=== PATIENT | male | born 1965 | race Caucasian/White ===

== ENCOUNTER 2018-09-07 05:54 | Inpatient (IN) | payer OTHER ==
[2018-08-27 17:01] VITALS: BMI 40.3
[2018-09-07] MEDS ORDERED: BUPIVACAINE HCL/PF 2.5 MG/ML - 30 ML VIAL IJ ONE (07:35)
--- NOTE | 2018-09-07 07:46 | HP ---
Admitting History and Physical - Admission Chief Complaint: Morbid obesity History Source: Patient Limitations to Obtaining History: No Limitations - Past Medical History Cardiovascular: Yes: HTN - Smoking History Smoking history: Former smoker Have you smoked in the past 12 months: No Aproximately how many cigarettes per day: 26 If you are a former smoker, when did you quit?: 4 yrs ago - Alcohol/Substance Use Hx Alcohol Use: No (pt vapes) Home Medications - Allergies Allergies/Adverse Reactions: Allergies Allergy/AdvReac Type Severity Reaction Status Date / Time No Known Allergies Allergy Verified 01/10/13 13:11 - Home Medications Home Medications: Ambulatory Orders Lisinopril 20 mg PO HS 09/04/18 Metoprolol Succinate 25 mg PO HS 09/04/18 Family Disease History - Family Disease History Family History: Denies Review of Systems - Review of Systems Constitutional: denies: Chills, Fever HENT: reports: No Symptoms Neck: reports: No Symptoms Cardiovascular: reports: No Symptoms Respiratory: reports: No Symptoms Gastrointestinal: reports: No Symptoms. denies: Abdominal Pain Neurological: reports: No Symptoms Pain Intensity: 0 Physical Examination Vital Signs: Vital Signs Temperature Pulse Rate 67 09/07/18 07:33 Respiratory Rate 16 09/07/18 07:33 Blood Pressure 165/115 H 09/07/18 07:33 O2 Sat by Pulse Oximetry (%) Constitutional: Yes: Calm Neck: Yes: WNL Cardiovascular: Yes: WNL Respiratory: Yes: Regular Gastrointestinal: Yes: Soft, Abdomen, Obese. No: Tenderness Neurological: Yes: Alert, Oriented Problem List - Problems (1) Morbid obesity due to excess calories Code(s): E66.01 - MORBID (SEVERE) OBESITY DUE TO EXCESS CALORIES (2) BMI 40.0-44.9, adult Code(s): Z68.41 - BODY MASS INDEX (BMI) 40.0-44.9, ADULT (3) Hypertension Code(s): I10 - ESSENTIAL (PRIMARY) HYPERTENSION Qualifiers: Hypertension type: unspecified Qualified Code(s): I10 - Essential (primary ) hypertension Assessment/Plan Laparoscopic possible open vertical sleeve gastrectomy possible liver biopsy possible upper endoscopy Risks and benefits explained again Understands Patient and agree
[2018-09-07] MEDS ORDERED: fentaNYL CITRATE 250 MCG/5 ML VIAL ONE (08:02)
[2018-09-07] MEDS ORDERED: MIDAZOLAM HCL 2 MG/2 ML SINGLE DOSE VIAL ONE (08:02)
[2018-09-07] MEDS ORDERED: BUPIVACAINE HCL/PF (5 MG/ML) 30 ML VIAL IJ ONE (08:02)
[2018-09-07] MEDS ORDERED: SUCCINYLCHOLINE CHLORIDE 200 MG/10 ML VIAL ONE (08:18)
[2018-09-07] MEDS ORDERED: PROPOFOL 20 ML ONE ×2 (08:18)
[2018-09-07] MEDS ORDERED: ROCURONIUM BROMIDE 50 MG/5 ML VIAL ONE (08:18)
[2018-09-07] MEDS ORDERED: ONDANSETRON 4 MG/2 ML VIAL ONE (08:19)
[2018-09-07] MEDS ORDERED: DEXAMETHASONE SOD PHOSPHATE 4 MG/1 ML VIAL ONE (08:19)
[2018-09-07] MEDS ORDERED: ceFAZolin SODIUM 1 GM VIAL ONE (08:19)
[2018-09-07] MEDS ORDERED: ePHEDrine SULFATE 50 MG/1 ML AMPULE ONE (09:26)
[2018-09-07] MEDS ORDERED: GLYCOPYRROLATE 0.2 MG/1 ML VIAL ONE (09:29)
[2018-09-07] MEDS ORDERED: NEOSTIGMINE METHYLSULFATE 0.5 MG/ML - 10 ML MDV ONE (09:29)
[2018-09-07] MEDS ORDERED: HYDROmorphone HCL CARPU-JECT 1 MG/1 ML DISP.SYRIN IVPB PRN (09:47)
--- NOTE | 2018-09-07 09:52 | OP ---
Operative Note - Note: Operative Date: 09/07/18 Pre-Operative Diagnosis: Morbid obesity. BMI 40.4. Hypertension Operation: Diagnostic laparoscopy. Laparoscopic vertical sleeve gastrectomy Post-Operative Diagnosis: Same as Pre-op Surgeon: Gibran Solorio Face Painter: Jono Shi Anesthesia: General Specimens Removed: Greater curvature of stomach Estimated Blood Loss (mls): 30 Drains & Tubes with Location: 36 fr Bougie Operative Report Dictated: Yes
[2018-09-07] MEDS ORDERED: ACETAMINOPHEN 1000 MG/100 ML VIAL (NON FORMULARY) IVPB SCH (10:00)
[2018-09-07] MEDS ORDERED: SODIUM CHLORIDE 1,000 ML IV SCH (10:00)
[2018-09-07] MEDS ORDERED: METOCLOPRAMIDE HCL INJECTION 10 MG/2 ML VIAL IVPUSH SCH (10:00)
[2018-09-07] MEDS ORDERED: LABETALOL HCL 5 MG/1 ML (100MG/20 ML VIAL) ONE (10:16)
[2018-09-07 10:32] LABS: HEMATOCRIT 41.9 % (35.4-49); HEMOGLOBIN 14.2 GM/dl (11.7-16.9); MCH 29.5 pg (25.7-33.7); MCHC 33.9 g/dl (32.0-35.9); MEAN CELL VOLUME 87.1 fl (80-96); MEAN PLT VOLUME 7.6 fl (7.5-11.1); PLATELET COUNT 309 K/MM3 (134-434); RBC 4.81 M/mm3 (4.00-5.60); RDW 12.2 % (11.9-15.9); WHITE BLOOD COUNT 9.6 K/mm3 (4.0-10.8)
[2018-09-07] MEDS ORDERED: FAMOTIDINE 20 MG PREMIXED IVPB IVPB ONE (10:40)
[2018-09-07 11:00] LABS: ALBUMIN 3.8 g/dl (3.4-5.0); ALK PHOS 76 U/L (45-117); ANION GAP 12 MMOL/L (8-16); BILIRUBIN,TOTAL 0.7 mg/dl (0.2-1); BLOOD UREA NITROGEN 14 mg/dl (7-18); CALCIUM 8.4 mg/dl (8.5-10); CHLORIDE 102 mmol/L (98-107); CO2 24 mmol/L (21-32); GLUCOSE,RANDOM 137 mg/dl (74-106); SGOT/AST 92 U/L (15-37); SGPT/ALT 144 U/L (13-61); SODIUM 138 mmol/L (136-145)
[2018-09-07] MEDS: LISINOPRIL 20 MG TABLET (FP) PO SCH (11:05)
[2018-09-07] MEDS ORDERED: hydrALAZINE HCL 20 MG/ML VIAL ONE (12:14)
[2018-09-07] MEDS ORDERED: LABETALOL HCL 5 MG/1 ML (100MG/20 ML VIAL) IVPUSH ONE (13:04)
[2018-09-07] MEDS ORDERED: hydrALAZINE HCL 20 MG/ML VIAL IVPUSH ONE (13:05)
--- NOTE | 2018-09-07 13:29 | SPEC ---
DATE OF OPERATION: 09/07/2018 SURGEON: Lizzie Solorio MD AGRICULTURAL PILOT: Jono Shi MD PREOPERATIVE DIAGNOSES: 1. Morbid obesity. 2. Hypertension. 3. Body mass index 40.4. POSTOPERATIVE DIAGNOSES: 1. Morbid obesity. 2. Hypertension. 3. Body mass index 40.4. PROCEDURES: 1. Diagnostic laparoscopy. 2. Laparoscopic vertical sleeve gastrectomy. SPECIMEN: Greater curvature of the stomach. ESTIMATED BLOOD LOSS: 30 mL. DRAIN: None. ANESTHESIA: GET. BOUGIE SIZE: 36-[place]. REASON FOR PROCEDURE: This is a 52-year-old gentleman who presents to the office for weight loss options. After discussing the different options, he decided to proceed with a laparoscopic, possible open, vertical sleeve gastrectomy, possible upper endoscopy, possible liver biopsy. RISKS AND BENEFITS: After describing the different options for weight loss management, the patient decided to proceed with a laparoscopic, possible open vertical sleeve gastrectomy. The patient was seen by the respective subspecialties and cleared for surgery. The risks and benefits of the procedure were explained. These included bleeding, infection, hernia, AK, DVT, PE, injury to surrounding structures including the liver, colon, bowel, spleen, esophagus, vessel injury, nerve injury, weight regain, gastric leak, staple line leak, sleeve leak, obstruction, vitamin deficiency, hair loss, and as some of the possible complications. The patient understood and signed informed consent. DESCRIPTION OF PROCEDURE: The patient was placed supine on the operating room table. The patient underwent general endotracheal intubation. The arms were brought out at 90 degrees and secured. A foot board was placed, and the legs were secured laterally with padding. The abdomen was prepped and draped in the usual sterile fashion. A timeout was performed. An incision was made in the left upper quadrant, and a Veress needle inserted. Pneumoperitoneum was established. Subsequently, the Veress needle was removed, and a 5-mm trocar was placed under direct visualization with the laparoscope. The laparoscopic camera was inserted, and inspection of the abdominal cavity was performed. An incision was made in the supraumbilical region, and a 15-mm trocar placed under direct visualization. A 5-mm trocar was then placed in the right upper quadrant, and a 5-mm trocar placed below the left subcostal margin. A stab wound was made in the subxiphoid area, and a Astrid clamp inserted and removed to dilate the tract. A Nicholas liver retractor was inserted. The post was secured at the bedside by the nursing staff. The patient was placed in steep reverse Trendelenburg position. The Nicholas liver retractor was used to secure the liver towards the anterior abdominal wall. The pylorus was identified and 6 cm proximal to it, the lesser sac was entered using the Ligasure device. All lateral attachments to the greater curvature of the stomach including the short gastric vessels were ligated using the Ligasure device toward the gastrosplenic and gastrophrenic ligaments. Once this was done in its entirety, it was confirmed that all tubes within the nasal or oropharyngeal cavity including a temperature probe was removed by Anesthesia. The bougie was then inserted by Anesthesia. Transection of the stomach was then begun staying adjacent to the bougie but away from the angularis. Transection of the stomach was performed near the portion of the stomach where the lesser sac was entered. Two laparoscopic Endo- MARIANA black loads were used at this location. Laparoscopic Endo-MARIANA purple loads were then used for the remainder of the transection until the greater curvature of the stomach was fully transected. This was done staying close to the bougie. Care was taken to stay away from the angle of His cephalad. The staple line was then inspected. Hemostasis was identified. A leak test was then performed. The stomach was clamped distally to the staple line. Irrigation solution was placed in the left upper quadrant, and air insufflated by Anesthesia into the sleeve. No leaks were identified, and no obstruction was identified. This was done throughout the entirety of the staple line. The stomach was suctioned and the endoscope removed fully intact. At this point, the irrigation solution was suctioned, and again hemostasis noted. The 15-mm supraumbilical trocar was then removed, and the specimen removed from the site using a sponge stick choudhury. The specimen was inspected, and a Veress needle inserted. The specimen insufflated adequately, and no leak was identified. The staple line was noted to be intact. A Andriy Nate device was then used to close the fascia with a 0 Vicryl suture at this site. Again, hemostasis was noted. The Nicholas liver retractor was then removed under direct visualization. Pneumoperitoneum was desufflated, and the fascial sutures were secured. Hemostasis was noted at all incision sites, and Marcaine was injected at all incision sites. All incision sites were closed using 4-0 Biosyn. Sterile dressings were applied. The patient tolerated the procedure well and was transferred to the recovery room in stable condition. The patient was transferred to telemetry for further monitoring. LIZZIE SOLORIO M.D. ALEX/[id number] MTDD
[2018-09-07] MEDS: ONDANSETRON 4 MG/2 ML VIAL IVPUSH SCH ×4 (17:21→21:11)
[2018-09-07] MEDS: METOCLOPRAMIDE HCL INJECTION 10 MG/2 ML VIAL IVPUSH SCH ×2 (17:22→23:17)
[2018-09-07] MEDS: ACETAMINOPHEN 1000 MG/100 ML VIAL (NON FORMULARY) IVPB SCH ×2 (17:22→23:17)
[2018-09-07] MEDS: METOPROLOL TARTRATE 5 MG/5 ML VIAL IVPUSH PRN (17:22)
[2018-09-07] MEDS: FAMOTIDINE 20 MG/50 ML IVPB 20 MG/50 ML MG IVPB SCH ×2 (20:07→21:11)
[2018-09-07] MEDS: ENOXAPARIN NA (PORCINE) 40 MG/0.4 ML DISP.SYRIN SQ SCH (21:11)
[2018-09-08] MEDS: METOPROLOL TARTRATE 5 MG/5 ML VIAL IVPUSH PRN (00:30)
[2018-09-08] MEDS: ONDANSETRON 4 MG/2 ML VIAL IVPUSH SCH ×3 (01:28→09:39)
[2018-09-08] MEDS: ACETAMINOPHEN 1000 MG/100 ML VIAL (NON FORMULARY) IVPB SCH (05:38)
[2018-09-08] MEDS: METOCLOPRAMIDE HCL INJECTION 10 MG/2 ML VIAL IVPUSH SCH ×2 (05:39→10:47)
[2018-09-08 08:06] LABS: HEMATOCRIT 38.3 % (35.4-49); HEMOGLOBIN 12.6 GM/dl (11.7-16.9); MCH 28.8 pg (25.7-33.7); MCHC 32.8 g/dl (32.0-35.9); MEAN CELL VOLUME 87.8 fl (80-96); MEAN PLT VOLUME 7.9 fl (7.5-11.1); PLATELET COUNT 281 K/MM3 (134-434); RBC 4.36 M/mm3 (4.00-5.60); RDW 12.6 % (11.9-15.9); WHITE BLOOD COUNT 13.2 K/mm3 (4.0-10.8)
[2018-09-08] MEDS: LISINOPRIL 20 MG TABLET (FP) PO SCH (08:13)
[2018-09-08 08:37] LABS: ALBUMIN 3.8 g/dl (3.4-5.0); ALK PHOS 61 U/L (45-117); ANION GAP 10 MMOL/L (8-16); BLOOD UREA NITROGEN 16 mg/dl (7-18); CALCIUM 8.4 mg/dl (8.5-10); CHLORIDE 102 mmol/L (98-107); CO2 26 mmol/L (21-32); CREATININE 0.9 mg/dl (0.55-1.3); GLUCOSE,RANDOM 111 mg/dl (74-106); POTASSIUM 3.9 mmol/L (3.5-5.1); SGOT/AST 60 U/L (15-37); SGPT/ALT 112 U/L (13-61); SODIUM 138 mmol/L (136-145); TOT PROT 6.8 g/dl (6.4-8.2)
--- NOTE | 2018-09-08 09:10 | PN ---
Progress Note (short form) - Note Progress Note: POD 1 No pain No nausea Vital Signs Period Temp Pulse Resp BP Sys/Montoya Pulse Ox Last 24 Hr 97 F-98.8 F 69-109 18-20 117-175/78-123 93-100 Abd soft CBC,CMP WBC 13.2 K/mm3 (4.0-10.8) H 09/08/18 07:10 RBC 4.36 M/mm3 (4.00-5.60) 09/08/18 07:10 Hgb 12.6 GM/dl (11.7-16.9) 09/08/18 07:10 Hct 38.3 % (35.4-49) 09/08/18 07:10 MCV 87.8 fl (80-96) 09/08/18 07:10 MCH 28.8 pg (25.7-33.7) 09/08/18 07:10 MCHC 32.8 g/dl (32.0-35.9) 09/08/18 07:10 RDW 12.6 % (11.9-15.9) 09/08/18 07:10 Plt Count 281 K/MM3 (134-434) 09/08/18 07:10 MPV 7.9 fl (7.5-11.1) 09/08/18 07:10 Sodium 138 mmol/L (136-145) 09/08/18 07:10 Potassium 3.9 mmol/L (3.5-5.1) 09/08/18 07:10 Chloride 102 mmol/L (98-107) 09/08/18 07:10 Carbon Dioxide 26 mmol/L (21-32) 09/08/18 07:10 Anion Gap 10 MMOL/L (8-16) 09/08/18 07:10 BUN 16 mg/dl (7-18) 09/08/18 07:10 Creatinine 0.9 mg/dl (0.55-1.3) 09/08/18 07:10 Creat Clearance w eGFR 88.96 (>60) 09/08/18 07:10 Random Glucose 111 mg/dl (74-106) H 09/08/18 07:10 Calcium 8.4 mg/dl (8.5-10) L 09/08/18 07:10 Total Bilirubin 1.0 mg/dl (0.2-1) 09/08/18 07:10 AST 60 U/L (15-37) H 09/08/18 07:10 ALT 112 U/L (13-61) H 09/08/18 07:10 Alkaline Phosphatase 61 U/L (45-117) D 09/08/18 07:10 Total Protein 6.8 g/dl (6.4-8.2) 09/08/18 07:10 Albumin 3.8 g/dl (3.4-5.0) 09/08/18 07:10 UGI: pending If UGI shows no leak/obstruction, will start clears and plan discharge Problem List - Problems (1) Morbid obesity due to excess calories Code(s): E66.01 - MORBID (SEVERE) OBESITY DUE TO EXCESS CALORIES (2) BMI 40.0-44.9, adult Code(s): Z68.41 - BODY MASS INDEX (BMI) 40.0-44.9, ADULT (3) Hypertension Code(s): I10 - ESSENTIAL (PRIMARY) HYPERTENSION Qualifiers: Hypertension type: unspecified Qualified Code(s): I10 - Essential (primary ) hypertension
[2018-09-08] MEDS: FAMOTIDINE 20 MG/50 ML IVPB 20 MG/50 ML MG IVPB SCH (09:38)
[2018-09-08] MEDS: ENOXAPARIN NA (PORCINE) 40 MG/0.4 ML DISP.SYRIN SQ SCH (09:39)
[2018-09-08] MEDS ORDERED: LISINOPRIL 20 MG TABLET (FP) PO SCH (10:00)
[2018-09-08] MEDS ORDERED: oxyCODONE HCL 5 MG TABLET PO PRN (11:20)
--- NOTE | 2018-09-08 11:21 | PN ---
Progress Note (short form) - Note Progress Note: UGI reviewed with radiology No leak/obstruction Clears Discharge home Problem List - Problems (1) Morbid obesity due to excess calories Code(s): E66.01 - MORBID (SEVERE) OBESITY DUE TO EXCESS CALORIES (2) BMI 40.0-44.9, adult Code(s): Z68.41 - BODY MASS INDEX (BMI) 40.0-44.9, ADULT (3) Hypertension Code(s): I10 - ESSENTIAL (PRIMARY) HYPERTENSION Qualifiers: Hypertension type: unspecified Qualified Code(s): I10 - Essential (primary ) hypertension
[2018-09-08] MEDS ORDERED: SODIUM CHLORIDE 1,000 ML IV SCH (11:30)
--- NOTE | 2018-09-08 12:39 | PN ---
Progress Note (short form) - Note Progress Note: ANESTHESIA POSTOP 52 YO MALE POD#1 S/P LAP GASTRIC SLEEVE AND GETA Patient out of bed in bathroom, pain adequately controlled VSS, Afebrile Continue current care. Encouraged IS and ambulation as tolerated
[2018-09-08 13:29] VITALS: BP 130/70; PULSE 80; TEMP 98.1
--- NOTE | 2018-09-09 15:08 | PATH ---
Surgical Pathology Report Patient Name: DORIAN ROLDAN Med. Rec. #: [id number] /Age/Gender: 1965 (Age: 52) / M Account: [id number] Location: [facility] Taken: 09/07/2018 Received: 09/07/2018 Reported: 09/09/2018 Physicians: Gibran Solorio M.D. Specimen(s) Received PARTIAL STOMACH Clinical History Morbid obesity Final Diagnosis PARTIAL STOMACH, LAP SLEEVE GASTRECTOMY: PORTION OF STOMACH SHOWING MILD CHRONIC MUCOSAL INFLAMMATION. IMMUNOSTAIN IS NEGATIVE FOR H. PYLORI ORGANISMS. Electronically Signed Vilma Triana M.D. Gross Description Received in formalin, labeled "partial stomach," is a 106 gram, 20.5 x 3.2 x 2.6 cm. portion of stomach with a stapled margin of resection. The serosa is mandujano-velasquez with minimal attached fat. The mucosa is mandujano-pink with normal folds. No mucosal masses are identified. [facility] Consultant sections are submitted in one cassette. /09/07/2018 saudi/09/07/2018
== END 2018-09-08 13:17 | disposition home or self-care (01) | DRG 621 ==
LOC: FM/S 05:54
PROVIDERS: ADMIT Surgery; ATTEND Surgery
PROC: 0DB64Z3 Excision of Stomach, Percutaneous Endoscopic Approach, Vertical (ICD-10-PCS; principal; 2018-09-07 08:46)
PROC: 0WJP4ZZ Inspection of Gastrointestinal Tract, Percutaneous Endoscopic Approach (ICD-10-PCS; 2018-09-07 08:46)
DX: E66.01 Morbid (severe) obesity due to excess calories (principal); Z68.41 Body mass index [BMI] 40.0-44.9, adult; Z87.891 Personal history of nicotine dependence; I10 Essential (primary) hypertension; G47.30 Sleep apnea, unspecified
CPT/HCPCS: 36415; 74241-TC-FY; 80053; 85027; 88305-TC; 94660; 94760; J0131; J7030